=== PATIENT | female | born 1980 | race Caucasian/White ===

== ENCOUNTER 2017-12-24 07:32 | Emergency (ER) | payer SELFPAY ==
[2017-12-24 08:31] LABS: SQUAMOUS EPITHIAL 15 /hpf (0-5); URINE BILIRUBIN NEGATIVE (NEGATIVE); URINE BLOOD NEGATIVE (NEGATIVE); URINE CLARITY Hazy (Clear); URINE COLOR Yellow (YELLOW); URINE GLUCOSE (UA) NORMAL (Normal); URINE LEUKOCYTE ESTERASE NEG Leu/uL (Negative); URINE PROTEIN NEGATIVE (NEGATIVE)
--- NOTE | 2017-12-24 09:04 | C.PDOC ---
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 Patient reports she feels better when she puts pressure on said ball. Patient states pain feels worse when she breathes. Pain scale 6/10, but with breathing 8/10. Patient reports she has chronic constipation and had a bowel movement x4 days ago. Patient had this pain before but never associated with breathing. Denies fever, chills, nausea and vomiting. Time Seen by Provider: 12/24/17 07:35 Chief Complaint (Nursing): Abdominal Pain History Per: Patient History/Exam Limitations: no limitations Onset/Duration Of Symptoms: Hrs Current Symptoms Are (Timing): Still Present Pain Scale Rating Of: 6 Location Of Pain/Discomfort: LUQ Past Medical History Reviewed: Historical Data, Nursing Documentation, Vital Signs Vital Signs: Last Vital Signs Temp 98.5 F 12/24/17 09:09 Pulse 87 12/24/17 09:09 Resp 16 12/24/17 09:09 BP 114/86 12/24/17 09:09 Pulse Ox 99 12/24/17 09:09 Family History: States: Unknown Family Hx - Social History Hx Tobacco Use: Yes Hx Alcohol Use: No Hx Substance Use: No - Immunization History Hx Tetanus Toxoid Vaccination: Yes Hx Influenza Vaccination: Yes Hx Pneumococcal Vaccination: No Review Of Systems Except As Marked, All Systems Reviewed And Found Negative. Constitutional: Negative for: Fever, Chills Gastrointestinal: Positive for: Constipation (chronic). Negative for: Nausea, Vomiting Musculoskeletal: Positive for: Other (LUQ abd pain) Physical Exam - Physical Exam Appears: Non-toxic, No Acute Distress Skin: Normal Color, Warm, Dry Head: Normacephalic Eye(s): bilateral: Normal Inspection Oral Mucosa: Moist Chest: Symmetrical, No Deformity Cardiovascular: Rhythm Regular Respiratory: Normal Breath Sounds Gastrointestinal/Abdominal: Soft, Other (slight discomfort on deep palpation) Back: No CVA Tenderness Neurological/Psych: Oriented x3, Normal Speech Gait: Steady ED Course And Treatment O2 Sat by Pulse Oximetry: 100 (RA) Pulse Ox Interpretation: Normal Medical Decision Making Medical Decision Making: Impression: LUQ abdominal pain with breathing discomfort and chronic constipation Plans: -- test -- UA Reassess: UA is negative, flat plate was done and showed moderate retained feces. Patient reports she feels better and is comfortable going home. Disposition Counseled Patient/Family Regarding: Studies Performed, Diagnosis, Need For Followup - Disposition Disposition: HOME/ ROUTINE Disposition Time: 09:02 Condition: STABLE Additional Instructions: Drink plenty water. Avoid rice and bread. Instructions: Constipation in Adults Forms: [facility] (Iraqi), General Discharge Instructions - Clinical Impression Clinical Impression: Abdominal pain, Constipation - Scribe Statement The provider has reviewed the documentation as recorded by the Nancyibsherie Tavarez Do Provider Attestation: All medical record entries made by the Harini were at my direction and personally dictated by me. I have reviewed the chart and agree that the record accurately reflects my personal performance of the history, physical exam, medical decision making, and the department course for this patient. I have also personally directed, reviewed, and agree with the discharge instructions and disposition.
[2017-12-24 09:19] VITALS: BP 114/86; PULSE 87; RESP 16; TEMP 98.5
--- NOTE | 2017-12-24 09:34 | RAD ---
Date of service: 12/24/2017 HISTORY: pain COMPARISON: No prior. FINDINGS: BOWEL: No evidence of acute mechanical bowel obstruction. There is an irregular radiopaque density overlying the left upper quadrant of the abdomen that could represent overlying clothing artifact. More discrete elliptical shaped radiopaque density just medial to the left renal pelvis silhouette may represent bowel related artifact as well though it renal calculus not excluded. Followup CT scan abdomen pelvis recommended further evaluation. BONES: Normal. OTHER FINDINGS: None. IMPRESSION: No evidence of acute mechanical bowel obstruction. There is an irregular radiopaque density overlying the left upper quadrant of the abdomen that could represent overlying clothing artifact. More discrete elliptical shaped radiopaque density just medial to the left renal pelvis silhouette may represent bowel related artifact as well though it renal calculus not excluded. Followup CT scan abdomen pelvis recommended further evaluation. .
[2017-12-24 10:46] VITALS: O2SAT 100
== END 2017-12-24 09:10 | disposition home or self-care (01) ==
LOC: C.ER 07:32
DX: K59.00 Constipation, unspecified (principal); R10.12 Left upper quadrant pain